=== PATIENT | male | born 1955 | race Caucasian/White ===

== ENCOUNTER 2016-10-11 18:47 | Inpatient (IN) | payer BC ==
[~2016-10-11] VITALS: Ht 177.8 cm; Wt 101.9 kg
[~2016-10-11 18:47] MED LIST: LISINOPRIL-HCT1 EACH PO
[2016-10-11 19:17] LABS: HEMATOCRIT 42.4 % (38.0-50.0); MCH 30.8 PG (29.0-34.0); MCV 90.6 FL (86-99); MEAN PLAT.VOLUME 10.1 uM^3 (9.0-12.4); NRBC (%) 0.2 /100 WBC (0-0); PLATELET COUNT 281 K/uL (156-360); RBC DIS.WIDTH-CV 12.7 % (11.8-14.6); RED BLOOD COUNT 4.68 M/uL (4.00-5.50); WHITE BLOOD COUNT 13.3 K/uL (4.1-10.2)
[2016-10-11 19:26] LABS: CHLORIDE 101 mEq/L (99-109); POTASSIUM 4.3 mEq/L (3.7-5.4); SODIUM 136 mEq/L (136-147)
[2016-10-11 19:27] LABS: GLUCOSE 97 mg/dL (70-99)
[2016-10-11 19:29] LABS: ANION GAP 11 MEQ/L (2-14)
[2016-10-11 19:31] LABS: GFR ESTIMATE (CALCULATED) > 59 mL/min/
[2016-10-11 19:32] LABS: UREA NITROGEN (BUN) 25 mg/dL (9-23)
[2016-10-11 20:17] LABS: PROTHROMBIN TIME 10.5 (9.2-11.2); PTT 27.1 (25-32)
[2016-10-11] MEDS ORDERED: ATORVASTATIN CA20 MG PO (22:51)
[2016-10-11] MEDS ORDERED: ALEVE220 M2 PO (22:52)
[2016-10-11] MEDS ORDERED: CYANOCOBALAM1000 MCG PO (22:53)
[2016-10-11] MEDS ORDERED: DAILY VALUE1 EACH PO (22:53)
[2016-10-12] VITALS (27 sets, daily range): BP systolic 97–160; BP diastolic 50–109
[2016-10-12 02:08] LABS: METH RESISTANT S AUREUS PCR NEGATIVE (NEGATIVE)
[2016-10-12 02:20] LABS: PROBE CHECK PASS; SPECIMEN PROCESSING CONTROL PASS
[2016-10-12 06:28] LABS: HDL CHOLESTEROL 36 MG/DL (Desirable>=40); LDL CHOLESTEROL 133 mg/dL (Desirable<100); NON-HDL CHOLESTEROL 182 mg/dL (Desirable<160); TOTAL CHOLESTEROL 218 mg/dL (Desirable<200); TRIGLYCERIDES 244 MG/DL (Normal: <150)
[2016-10-13] VITALS (15 sets, daily range): BP systolic 112–153; BP diastolic 62–94
[2016-10-14 00:30] VITALS: BP 107/64
[2016-10-14 04:30] VITALS: BP 113/76
[2016-10-14 08:00] VITALS: BP 130/86
[2016-10-14 12:00] VITALS: BP 133/85
[2016-10-14 16:05] VITALS: BP 171/101
[2016-10-15 00:03] VITALS: BP 113/56
[2016-10-15 07:38] VITALS: BP 123/72
[2016-10-15] MEDS ORDERED: ASPIRIN EC325 MG PO (11:42)
[2016-10-15] MEDS ORDERED: LIPITOR40 MG PO (12:06)
== END 2016-10-15 13:14 | disposition home health service (06) | DRG 65 ==
LOC: EME 18:47 → 5SOUTH 22:03 → EDOF 22:03 → 4WEST 22:03 → 5SOUTH 10-14 15:52
PROVIDERS: Anesthesiology; Emergency Medicine
DX: I63.9 Cerebral infarction, unspecified (principal); I69.351 Hemiplegia and hemiparesis following cerebral infarction affecting right dominant side; I10 Essential (primary) hypertension; E78.5 Hyperlipidemia, unspecified; Z79.82 Long term (current) use of aspirin; R29.705 NIHSS score 5; Z87.891 Personal history of nicotine dependence; I67.82 Cerebral ischemia
CPT/HCPCS: 70450; 70496; 70498; 70551; 71010; 71020; 80048; 80061; 85027; 85610; 85730; 87641; 93005; 93306; 96125 GN; 99281; 99285; J2997